=== PATIENT | female | born 1980 | race Caucasian/White ===

== ENCOUNTER 2017-04-17 05:38 | Emergency (ER) | payer OTHER ==
[~2017-04-17] VITALS: Ht 170.2 cm; Wt 48.5 kg
[~2017-04-17 05:38] MED LIST: AMITRIPTYLINE H10 MG PO; FLONASE ALLERG9.9 ML NS; GARLIC1 EACH PO; HYDROCODON-ACE1 EAC8 PO; IMITREX50 MG PO; KEPPRA500 MG PO; KEPPRA750 MG PO; OMEPRAZOLE20 MG PO; ONE DAILY MULT1 EAC1 PO; OXYCODON-ACETA1 EAC2 PO; PROMETHAZINE HC25 M1 PO; SUMATRIPTAN SU100 MG PO; SUMATRIPTAN SUC50 MG PO; ZOFRAN ODT4 MG PO; ZOFRAN4 MG PO
== END 2017-04-17 07:17 | disposition home or self-care (01) ==
LOC: ED 05:38
DX: K52.9 Noninfective gastroenteritis and colitis, unspecified (principal); G40.909 Epilepsy, unspecified, not intractable, without status epilepticus; Z88.5 Allergy status to narcotic agent; Z79.899 Other long term (current) drug therapy
CPT/HCPCS: 80053; 81001; 83690; 85025; 96374; 96375; 99283; J2270; J2405; J2550; J7030

== ENCOUNTER 2017-08-08 07:39 | Emergency (ER) | payer OTHER ==
[~2017-08-08] VITALS: Ht 170.2 cm; Wt 48.5 kg
[2017-08-08] MEDS ORDERED: ALPRAZOLAM ER1 MG PO (07:58)
[2017-08-08] MEDS ORDERED: CATAPRES0.1 MG PO (07:59)
[2017-08-08] MEDS ORDERED: PROMETHAZINE HC25 M1 PO (13:21)
== END 2017-08-08 13:50 | disposition home or self-care (01) ==
LOC: ED 07:39
DX: R11.10 Vomiting, unspecified (principal); G40.909 Epilepsy, unspecified, not intractable, without status epilepticus; Z88.5 Allergy status to narcotic agent; Z79.899 Other long term (current) drug therapy
CPT/HCPCS: 74177; 80053; 81001; 84703; 85025; 96361; 96374; 96375; 96376; 99284; J2060; J2405; J2550; J7030; J7120; Q9967